=== PATIENT | male | born 1995 | race Caucasian/White ===

== ENCOUNTER 2018-05-27 09:11 | Emergency (ER) | payer BC | END 2018-05-27 09:55 | disposition home or self-care (01) | LOC: MADERS 09:11 | DX: T63.481A Toxic effect of venom of other arthropod, accidental (unintentional), initial encounter (principal); F90.9 Attention-deficit hyperactivity disorder, unspecified type; F17.220 Nicotine dependence, chewing tobacco, uncomplicated | CPT/HCPCS: 99282 ==